=== PATIENT | female | born 1975 | race American Indian/Alaskan Native ===

== ENCOUNTER 2016-11-25 09:35 | Outpatient (CLI) | payer BC ==
--- NOTE | 2016-11-26 09:02 | Magnetic Resonance Report ---
BILATERAL BREAST MRI WITHOUT AND WITH CONTRAST: 11/25/16 09:35:00 CLINICAL: Newly diagnosed left breast cancer by stereotactic biopsy of calcifications. COMPARISON:Recent [facility] mammograms. TECHNIQUE: Axial 1.0-mm T1 without, axial high resolution 2.0-mm T2 and axial 1.0-mm dynamic Vibrant high-resolution postcontrast T1 fat saturation sequences on a 1.5 Leida magnet. The examination was performed with an 8 channel dedicated [place] breast coil. Post processing with CAD and subtraction was performed on an [employer] workstation. 17.0 cc of Multihance was injected without incident for the contrast portion of the exam. Consent was obtained prior to the administration of the contrast. FINDINGS: Right: Mild background parenchymal enhancement. No mass or suspicious enhancement of the right breast. An intra-parenchymal lymph node in the upper-outer quadrant 10.7 cm from the nipple measures 1.0 cm and has benign morphology with central fat. No suspicious lymph nodes. Left: Moderate background parenchymal enhancement. A 1.6 x 1.0 cm stereotactic biopsy cavity is located in the upper outer quadrant approximately 10 cm from the nipple. A large volume of regional non-mass enhancement is identified adjacent to the biopsy site. It measures approximately 10.0 x 1.9 x 2.2 cm. It demonstrates heterogeneous enhancement with mixed kinetics, 290% peak enhancement, 68% type I persistent, 28% type II plateau and 4% type III washout. A suspicious oval slightly irregular mass is identified at the lateral margin of the non-Mass enhancement in the upper outer quadrant approximately 7.5 cm from the nipple. It measures 5.6 x 3.7 x 3.5 mm and demonstrates heterogeneous enhancement with mixed kinetics, 204% peak enhancement, 46% type II plateau and 52% type III washout. No other mass or suspicious enhancement of the left breast. No suspicious lymph nodes. IMPRESSION: 1. Known left breast cancer and a large volume of regional non-mass enhancement of the left breast by MRI which correlates well with the distribution of calcifications on the mammogram. 2. A suspicious 5.6 mm left upper outer mass 7.5 cm from the nipple is at the margin of the highly suspicious non mass enhancement. 3. Negative right breast. 4. No suspicious lymph nodes. RIGHT BI-RADS 2 -- Benign LEFT BI-RADS 6 -- Known Breast Cancer
== END 2016-11-25 09:36 | disposition home or self-care (01) ==
LOC: SPVIMAG 09:35
PROVIDERS: ATTEND Surgery
DX: C50.412 Malignant neoplasm of upper-outer quadrant of left female breast (principal); R92.1 Mammographic calcification found on diagnostic imaging of breast
CPT/HCPCS: 0159T; A9577; C8908; 77059

== ENCOUNTER 2016-11-26 13:49 | Outpatient (CLI) | payer BC ==
--- NOTE | 2016-11-26 16:51 | Mammography Report ---
STEREOTACTIC VACUUM ASSISTED BIOPSY WITH CLIP PLACEMENT LEFT BREAST: 11/26/16 13:49:00 CLINICAL: Known left breast cancer status post recent stereotactic biopsy for calcifications. The purpose of this procedure is to help establish the extent of tumor. COMPARISON:Recent [facility] mammogram FINDINGS: Consent for the procedure was obtained. A group of calcifications in the outer breast closer to the nipple was targeted with stereotactic guidance. The skin was prepped with Betadine and anesthetized with 1% lidocaine. 2% lidocaine with epinephrine was injected for deeper anesthesia. 8 gauge Mammotome biopsy was performed from a lateral approach through a small dermatotomy. Prefire and post-fire images demonstrated satisfactory positioning of the probe. Samples were obtained around the clock face. A specimen radiograph confirmed satisfactory sampling with removal of healthcare representative calcifications in several cores. A clip was placed at the biopsy site and the placement was confirmed with a radiograph. The probe was removed and hemostasis was achieved with mild pressure. A sterile dressing was applied. The patient tolerated the procedure well and there were no apparent complications. A 2 view mammogram demonstrated concordant deployment of the biopsy clip.The clip is approximately 7 cm more distal than the recent stereotactic biopsy. IMPRESSION: Uncomplicated stereotactic biopsy with clip placement left breast.
--- NOTE | 2016-11-26 16:54 | Mammography Report ---
LEFT DIGITAL DIAGNOSTIC MAMMOGRAM: 11/26/16 13:49:00 CLINICAL: For clip placement immediately status post stereotactic biopsy. COMPARISON:Recent [facility] mammogram. FINDINGS: 2 localizer clips are identified in the outer breasts. The more posterior clip correlates with the stereotactic procedure performed by Dr. Gomez and a known cancer. The more anterior clip correlates with today's biopsy and the 2 clips are 7 cm apart on the CC view. IMPRESSION: Concordant clip placement status post second stereotactic biopsy of the left breast. BI-RADS CATEGORY: 6--Known Cancer Pathology pending.
== END 2016-11-26 13:50 | disposition home or self-care (01) ==
LOC: SPVWC 13:49
PROVIDERS: ATTEND Surgery
DX: C50.412 Malignant neoplasm of upper-outer quadrant of left female breast (principal); R92.1 Mammographic calcification found on diagnostic imaging of breast
CPT/HCPCS: 19081; 88305; 88361; A4648; G0206

== ENCOUNTER 2016-12-30 08:57 | Observation (INO) | payer BC ==
[~2016-12-30 08:57] MED LIST: NACL 0.9% 1000 ML 1,000 ML IV SCH; NEURONTIN PO NR; PEPCID PO NR; SUBLIMAZE IV NR; TRANSDERM-SCOP TD NR; VERSED IV NR
[2016-12-30] MEDS ORDERED: DECADRON ONE ×3 (11:00→11:54)
[2016-12-30] MEDS ORDERED: MARCAINE-EPI 0.25%-1:200,000 INFILTRATI ONE ×2 (11:00→11:01)
[2016-12-30] MEDS ORDERED: XYLOCAINE 1% 20 mL ONE ×2 (11:00)
[2016-12-30] MEDS ORDERED: CLONIDINE 1,000 MCG/10 ML VIAL EP ONE (11:00)
[2016-12-30] MEDS ORDERED: ANCEF ONE ×2 (11:01→21:35)
[2016-12-30] MEDS ORDERED: BACITRACIN ONE ×4 (11:01→13:26)
[2016-12-30] MEDS ORDERED: NACL P/F VIAL (10 ML) 10 ML ONE ×3 (11:01→13:23)
[2016-12-30] MEDS ORDERED: DIPRIVAN 10 MG/ML IV ONE (11:09)
[2016-12-30] MEDS ORDERED: XYLOCAINE MPF 2% ONE (11:09)
--- NOTE | 2016-12-30 11:35 | Short Stay Summary ---
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 She presents today for left total mastectomy with SLNB and possible ALND and right prophylactic total mastectomy, patient wishes to proceed with a right total prophylactic mastectomy for asymmetry. - History Past Medical History: No medical history Past Surgical History: No surgical history Social history: no significant social history - Allergies and Medications Current Medications: Allergies No Known Allergies Allergy (Unverified 12/24/16 13:33) Home Medications Medication Instructions Recorded Confirmed Last Taken Type Duloxetine HCl [Cymbalta] 60 mg PO QDAY 12/24/16 12/24/16 Unknown History Pnv95/Ferrous Fumarate/FA 1 each PO QDAY 12/24/16 12/24/16 Unknown History [ Caplet] traZODone [Desyrel] 1 - 2 tab PO QHS 12/24/16 12/24/16 Unknown History Active Medications Celecoxib (Celebrex) 200 mg PO PREOP NR Stop: 12/30/16 21:00 Last Admin: 12/30/16 10:41 Dose: 200 mg Famotidine (Pepcid) 20 mg PO PREOP NR Stop: 12/30/16 21:00 Last Admin: 12/30/16 10:42 Dose: 20 mg Fentanyl (Sublimaze) 100 mcg IV ONCE NR Stop: 12/30/16 21:00 Last Admin: 12/30/16 10:43 Dose: 100 mcg Gabapentin (Neurontin) 600 mg PO PREOP NR Stop: 12/30/16 21:00 Last Admin: 12/30/16 10:42 Dose: 600 mg Sodium Chloride (Nacl 0.9% 1000 Ml) 1,000 mls @ 75 mls/hr IV DIRECT JOANNA Last Admin: 12/30/16 10:41 Dose: 75 mls/hr Midazolam HCl (Versed) 2 mg IV PREOP NR Stop: 12/30/16 23:59 Last Admin: 12/30/16 10:43 Dose: 2 mg Scopolamine (Transderm-Scop) 1 each TD PREOP NR Stop: 12/30/16 21:00 Last Admin: 12/30/16 10:42 Dose: 1 each - Physical exam General appearance: no acute distress Integumentary: no rash HEENT: Atraumatic Lungs: Clear to auscultation Breasts: other (left breast biopsy site noted) Heart: Regular rate, Normal S1, Normal S2 Gastrointestinal: normal, normoactive bowel sounds Female Genitourinary: deferred Rectal Exam: deferred Extremities: no ischemia, pulses intact, pulses symmetrical, No edema, normal temperature, normal color, Full ROM Neurological: Normal gait, Normal speech, Strength at 5/5 X4 ext, Normal tone, Sensation intact, Cranial nerves 3-12 NL, Reflexes 2+ - Brief post op/procedure progress note Date of procedure: 12/30/16 Pre-op diagnosis: Left breast cancer of the upper outer quadrant Post-op diagnosis: same Procedure: Left total mastectomy with SLNB and right total mastectomy Anesthesia: GETA Findings: Bilateral total mastectomy with left SLNB and SLN negative for malignancy on frozen Surgeon: PER MILAN Estimated blood loss: minimal Pathology: list (left SLN, bilateral total mastectomy) Specimen disposition: to lab Condition: stable - Disposition Condition at discharge: Good Disposition: [id number]/TX-[id number]-TRM GEN HOSP IP Short Stay Discharge Plan Activity: other (no heavy lifting) Diet: regular Wound: other (per Dr. Hernandez) Follow up with: SHEREEN BREWER MD [Primary Care Provider] - 7 Days PER MILAN MD [Staff Physician] - 7 Days
[2016-12-30] MEDS ORDERED: GARAMYCIN ONE ×2 (12:34→13:12)
[2016-12-30] MEDS ORDERED: MARCAINE 0.5% 30 ML INFILTRATI ONE (12:55)
[2016-12-30] MEDS ORDERED: DILAUDID IV PRN (12:58)
[2016-12-30] MEDS ORDERED: ZOFRAN IV PRN ×2 (12:58→16:46)
--- NOTE | 2016-12-30 12:58 | Anesthesia Day of Surgery ---
Anesthesia Day of Surgery - Day of Surgery Patient Examined: Yes Patient H&P Reviewed: Yes Patient is NPO: Yes
--- NOTE | 2016-12-30 12:58 | Anesthesia Consultation ---
Anesthesia Consult and Med Hx Date of service: 12/30/16 - Airway Anesthetic Teeth Evaluation: Good ROM Head & Neck: Adequate Mental/Hyoid Distance: Adequate Mallampati Class: Class II Intubation Access Assessment: Probably Good - Pulmonary Exam CTA: Yes - Cardiac Exam Cardiac Exam: RRR - Pre-Operative Health Status ASA Pre-Surgery Classification: ASA2 Proposed Anesthetic Plan: General Nerve Block: PECS - Pulmonary Hx Smoking: No Hx Sleep Apnea: No - Other Systems Hx Cancer: Yes (LEFT BREAST, DX: 11/2016) Hx Obesity: Yes
[2016-12-30] MEDS ORDERED: NACL P/F VIAL (10 ML) 20 ML ONE (13:11)
[2016-12-30] MEDS ORDERED: DILAUDID ONE (13:23)
[2016-12-30] MEDS ORDERED: NACL P/F VIAL (10 ML) INFILTRATI ONE (14:39)
[2016-12-30] MEDS ORDERED: NACL 0.9% IR ONE ×2 (14:39→14:40)
[2016-12-30] MEDS ORDERED: BACITRACIN IR ONE (14:39)
[2016-12-30] MEDS ORDERED: WATER FOR IRRIG STERILE IR ONE (14:40)
[2016-12-30] MEDS ORDERED: ANCEF IV ONE (14:40)
[2016-12-30] MEDS ORDERED: GARAMYCIN IV ONE (14:41)
[2016-12-30] MEDS ORDERED: LACTATED RINGERS 1,000 ML ONE (15:27)
--- NOTE | 2016-12-30 15:27 | Operative Report ---
Operative Report Operative Report: Date of procedure:December 30, 2016 Pre-operative diagnosis: Multicentric left breast cancer of the upper outer quadrant Post-operative diagnosis: Same Procedure name(s): Right total mastectomy and left total mastectomy with SLNB Surgeon: Susan Gomez MD Supervisor Asphalt Paving: Mrs. Neff Anesthesia: General Findings:Bilateral Complications: EBL: less than 50 cc Disposition: placement of bilateral tissue expanders by Dr. Hernandez Indications for operative procedure: This is a 41 year old lady with multicentric left breast cancer of the upper outer quadrant. Recommendations were to proceed with a left total mastectomy with axillary lymph node staging. Patient wished to also proceed with a right prophylactic total mastectomy given asymmetry. Patient wished to proceed with the above procedure. Procedure in detail: Anesthesia placed bilateral pectoral muscle block prior to going back to the operating room. The patient was then taken to the operating room and was laid supine. Gen. anesthesia was administered. Bilateral breasts and axilla were prepped and draped in the normal sterile operative fashion. The nipple was injected with radioisotope. Skin incision was made with typical mastectomy incisions of the right breast with a 10 blade knife with dissection taken down to the subcutaneous tissues. First began with raising of the superior flap to the level of the clavicle taken down posteriorly to the pectoralis muscle followed by raising of the medial flap to the level of the sternum taken down posteriorly to the pectoralis muscle, follwed by raising of the inferior flap to the level of inframammary fold taken down posteriorly to the pectoralis muscle and followed by raising of the latissimus flap taken posteriorly to the chest wall. The breast was removed with the aid of Bovie cautery. Hemostasis was noted. Breast cavity was irrigated and temporarily closed. Attention was then taken towards the left breast. Gamma probe was inserted into the axilla marking of the sentinel lymph node. A skin incision was made with a 10 blade knife with dissection taken down to the subcutaneous tissues. First began with raising of superior flap to the level of the clavicle taken down posteriorly to the pectoralis muscle followed by raising of the medial flap to the level of the sternum taken down posteriorly to the pectoralis muscle , followed by raising of the lateral flap to the level of the latissimus dorsi taken down posteriorly. The gamma probe was inserted into the axilla, sentinel lymph node was appropriately dissected free and identified and sent to pathology. Findings from frozen section negative for malignancy. Attention was taken towards raising of the inferior flap to the level of the inframammary fold taken down posteriorly. The breast was removed from the pectoralis muscle with the aid of the Bovie cautery. Hemostasis was obtained and breast cavity irrigated and suctioned. Dr. Fischer then proceeded with placement of bilateral tissue expanders.
[2016-12-30] MEDS ORDERED: ZOFRAN ONE (15:28)
[2016-12-30] MEDS ORDERED: TORADOL ONE (15:28)
--- NOTE | 2016-12-30 16:39 | Post Operative Note ---
Pre-op diagnosis: breast cancer Findings: left sided breast cancer Procedure: bilateral breast reconstruction with tissue expanders and FlexHD Anesthesia: GETA Surgeon: RAFFAELE SORTO Estimated blood loss: minimal Pathology: none Condition: stable Disposition: PACU
[2016-12-30] MEDS ORDERED: SODIUM CHLORIDE FLUSH SYRINGE 10 ML IV PRN (16:46)
[2016-12-30] MEDS ORDERED: TYLENOL PO PRN (16:46)
[2016-12-30] MEDS ORDERED: BENADRYL PO PRN (16:46)
[2016-12-30] MEDS ORDERED: REGLAN PO PRN (16:46)
[2016-12-30] MEDS ORDERED: LACTATED RINGERS 1,000 ML IV SCH (17:00)
--- NOTE | 2016-12-30 17:13 | Post Anesthesia Evaluation ---
- Post Anesthesia Evaluation Patient Participated: Yes Airway Patent: Yes Stable Respiratory Function: Yes Nausea/Vomiting: No Temp > 96.8F: Yes Pain Manageable: Yes Adequeate Hydration: Yes Anesthesia Complications: No Block Receding Appropriately: Not Applicable Patient on Ventilator: No
[2016-12-30] MEDS: ANCEF/NS 1 GM/50 ML 1 GM/50 ML BAG IV SCH (21:48)
[2016-12-30] MEDS ORDERED: COLACE PO SCH (22:00)
[2016-12-30] MEDS: PERCOCET 5/325 PO PRN (23:07)
[2016-12-31] MEDS: ANCEF/NS 1 GM/50 ML 1 GM/50 ML BAG IV SCH (05:22)
[2016-12-31] MEDS: PERCOCET 5/325 PO PRN (06:34)
--- NOTE | 2016-12-31 08:07 | Progress Note ---
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 No acute events overnight and pain well controlled. 1. Bilateral breast mound incisions healing well, skin well perfused. 2. LIO drain education. 3. OOB to hallway. 4. Pain well controlled. 5. D/C planning for today. 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 Objective - Constitutional Vitals: Vital Signs - 12hr 12/30/16 12/31/16 12/31/16 20:10 00:00 04:20 Temperature 98.2 F 98.7 F 98.9 F Pulse Rate [ 69 65 64 From Monitor] Respiratory 20 20 20 Rate Blood Pressure 142/67 144/69 116/52 [Right Calf] General appearance: Present: no acute distress - EENT Eyes: PERRL, EOM intact ENT: hearing intact, clear oral mucosa, dentition normal Ears: bilateral: normal - Neck Neck: supple, normal ROM - Respiratory Respiratory effort: normal Respiratory: bilateral: CTA - Breasts Breasts: other (biateral chest incisions clean, dry and intact-bandages removed ; skin well perfused, tissue expanders in place; LIO drains to bulb suction) - Cardiovascular Rhythm: regular Extremities: no ischemia, pulses intact, pulses symmetrical, No edema, normal temperature, normal color, Full ROM - Gastrointestinal General gastrointestinal: Present: soft, non-tender, non-distended Rectal Exam: deferred - Genitourinary Female genitourinary: deferred - Integumentary Integumentary: clear, warm, dry - Musculoskeletal Musculoskeletal: strength equal bilaterally - Neurologic Neurologic: CNII-XII intact, moves all extremities - Psychiatric Psychiatric: appropriate mood/affect, intact judgment & insight, memory intact, cooperative
--- NOTE | 2016-12-31 08:36 | Admit Criteria Form ---
Admission Criteria Documentation: AMBULATORY SURGERY EXCEPTION CRITERIA Ambulatory Surgery Exception Criteria ( Place 'X' for any and all applicable criteria): Surgery or procedure performed on ambulatory basis may require inpatient stay for[A] ANY ONE of the following(1)(2)(3)(4)(5)(6)(7)(8)(9): [X] I. A preoperative situation, condition, or finding that warrants inpatient stay as indicated by ANY ONE of the following: [X] a) Inpatient care needed because of severity of a disease or condition rather than the surgery (eg, severe cardiac or respiratory disease, severe infection) (15) (16 ) (17) (18) [] b) Emergent procedure (eg, angioplasty for acute ischemia)(19) [] c) Complex surgical approach or situation as indicated by ANY ONE of the following(3): [] i) Open approach needed instead of usual endoscopic, transcatheter, or other less invasive procedure [] ii) Difficult approach because of previous operation [] iii) Airway monitoring required after open neck procedures(20)(21) [] iv) Large mass requiring unusually extensive dissection [] v) Additional complicating feature requiring inpatient care (eg, drain management)(22(23): [] d) Major surgery in a pt with high anesthetic risk as indicated by ANY ONE of the following (2)(3)(5)(7)(8): [] i) ASA risk class III or higher (severe systemic disease impairing function) [D] [] ii) Advanced age (eg, older than 85 years)(14)(24) [] iii) Symptomatic heart failure(25) [] iv) Symptomatic asthma or COPD(8)(21) [] v) Morbid obesity with hemodynamic or respiratory problems(20)( 21)(26)(27) [] vi) Obstructive sleep apnea(20)(21) [] vii) Former premature infants who are younger than 60 weeks [] viii) High risk for severe postoperative abnormalities (eg, severe postoperative hypocalcemia after parathyroidectomy for severe hyperparathyroidism)(27)( 28) [] ix) Unstable angina(25) [] e) Drug-related risk requiring inpatient stay as indicated by ANY ONE of the following(5)(10)(14)(32)(33) [] i) Procedure requires discontinuing drugs or other therapy (eg , antiarrhythmic medication, antiseizure medication), which necessitates inpatient observation or treatment.(18)(31) [] ii) Major surgery and high risk drug use as indicated by ANY ONE of the following: [] 1) Active abuse of cocaine or similar drug [] 2) Monoamine oxidase inhibitor use [] 3) Other drug identified as posing risk [] f) Inadequate outpatient care situation as indicated by ANY ONE of the following(5)(10)(14)(32)(33) [] i) Patient lives remote from medical facility and procedure has urgent complication potential, and temporary nearby residence cannot be arranged [] ii) Patient will have postprocedure incapacitation and inadequate assistance at home, or alternative level of care cannot be arranged. [] iii) Patient will have long general anesthesia or procedure side effect resolution time, and competent person to stay with patient on first postoperative night at home or alternative level of care cannot be arranged. []iv) Other inadequate outpatient situation that cannot be handled by other means [] II. A perioperative event, condition, or finding that warrants inpatient stay as indicated by ANY ONE of the following (1)(2)(3): [] a) Inadequate physiologic recovery: cardiovascular, respiratory, or hemodynamic status not normal or near preoperative baseline(18) [] b) Hemodynamic instability [] c) Patient not alert with near normal or baseline mental status [] d) Temperature not normal or as expected and not appropriate for outpatient treatment of condition [] e) Ambulatory or appropriate activity level status not yet achieved post procedure [E](34)(35)(36) [] f) Operative site not appropriate (eg, unexpected or excessive drainage or bleeding) [] g) Postoperative effects not resolved or adequately managed (eg, significant pain or vomiting not appropriate for outpatient or next level of care)(10)(12) [] h) Complicating features requiring inpatient care as indicated by ANY ONE of the following(37): [] i) Severe complications of procedure (eg, bowel injury, airway compromise, vascular injury,severe hemorrhage) [] ii) Extensive (eg, dissection far beyond usual scope of procedure ) or prolonged (eg, 120 minutes beyond usual) surgery needed requiring inpatient postoperative care [] iii) Conversion to an open or complex procedure that requires inpatient care (eg, open vs laparoscopic cholecystectomy, abdominal vs vaginal hysterectomy)(38) [] iv) Comorbid condition or test result identified during or post procedure that requires inpatient care (7) [] v) Malignant hyperthermia(30) [] vi) Other complicating feature requiring inpatient care(22)(23) Inpatient stay may be needed until ALL of the following are present (1)(2)(3)(4) (5)(6)(10)(14)(33)(40): []a) Physiologic recovery: cardiovascular, respiratory, and hemodynamic status normal or near preoperative baseline []b) Hemodynamic stability []c) Patient alert, with near normal or baseline mental status []d) Temperature appropriate: patient afebrile or temperature appropriate for outpt treatment of condition []e) Activity level appropriate: ambulatory or appropriate activity level post procedure []f) Operative site appropriate as indicated by ALL of the following: []i) Site dry or with expected drainage []ii) Any blood noted is as expected for procedure. []g) Postoperative effects resolved or managed as indicated by ALL of the following: []i) Pain management appropriate for outpatient (or next level of) care(10) []ii) Minimal nausea and vomiting: if present, successfully treated with oral medication(12) []iii) Headache, dizziness, or drowsiness (if present) are mild. []h) Voiding status acceptable as indicated by ANY ONE of the following: []i) Voiding spontaneously []ii) No voiding but instructions given for follow-up in 6 to 8 hours []iii) Urinary catheter in place, and instructions given for follow-up []i) Complicating features requiring inpatient care manageable at a lower level of care(37) []j) Comorbid conditions manageable at a lower level of care(37) The original [employer] content created by [employer] has been revised. The portions of the content which have been revised are identified through the use of italic text or in bold, and [employer] has neither reviewed nor approved the modified material. All other unmodified content is copyright [employer]. Please see references footnoted in the original [employer] edition 2016 Admission Criteria Met: Yes
[2016-12-31] MEDS ORDERED: FERROUS FUMARATE PO SCH (10:00)
[2016-12-31] MEDS ORDERED: PRENATAL VITAMIN PO SCH (10:00)
[2016-12-31] MEDS ORDERED: PNV95 PO SCH (10:00)
[2016-12-31] MEDS ORDERED: NON-FORMULARY (Duloxetine Hcl [Cymbalta] 60 MG) PO SCH (10:00)
[2016-12-31] MEDS ORDERED: CYMBALTA PO SCH (10:00)
[2016-12-31] MEDS ORDERED: [UNRECOGNIZED DRUG - OTHER] PO SCH (10:00)
[2016-12-31 12:08] VITALS: BP 138/57
== END 2016-12-31 10:55 | disposition home or self-care (01) ==
LOC: OR 08:57 → EDSTATUS 11:00 → INTOOBSV 16:46 → OB 16:46
PROVIDERS: ADMIT Surgery; ATTEND Surgery
DX: C50.412 Malignant neoplasm of upper-outer quadrant of left female breast (principal); Z17.0 Estrogen receptor positive status [ER+]
CPT/HCPCS: 19303; 64450; 78800; 88307; 88331; 88341; 88342; 88361; 96365; 96375; A9541; C1789; G0378; J0690; J0735; J1100; J1170; J1580; J1885; J2250; J2405; J2704; J3010; J7030; J7120; Q4128; 88333